=== PATIENT | female | born 1970 | race Caucasian/White ===

== ENCOUNTER 2025-09-29 16:27 | Emergency (ER) | payer OTHER ==
--- NOTE | 2025-09-29 16:36 | ERPHSYRPT ---
- History of Present Illness Time Seen by Provider: 09/29/25 16:36 Source: patient Exam Limitations: no limitations Physician History: This is an obese 55-year-old white female patient arrives with private vehicle and is a patient Dr. Lamar with a complaint of severe right lower quadrant abdominal pain and right hip pain. She also has seemingly unrelated other complaints including dizziness headache "seeing spots". She did not suffer any acute fall or head injury. She also complains of left thigh pain. The patient never fell or injured herself. Patient has had a right hip replacement and left knee replacement in the past. She does not have chest pain. She does not have shortness of breath. Yesterday, she had several episodes of diarrhea but none today. Patient has a history of arthritis, hypertension, peripheral neuropathy and "gallbladder stents". She still has her appendix in place. She states she also still has her gallbladder in place. She states she has never had an episode like this before Timing/Duration: yesterday, worse Severity: moderate Modifying Factors: Improves With: movement Associated Symptoms: abdominal pain (Right lower quadrant), No nausea, No vomiting, No shortness of breath, No chest pain, No fever Allergies/Adverse Reactions: ibuprofen Allergy (Verified 09/29/25 16:36) Penicillins Allergy (Verified 09/29/25 16:36) Home Medications: Benazepril/Hydrochlorothiazide [Benazepril-Hctz 10-12.5 mg Tab] 0.5 tab PO DAILY 09/29/25 [History] Gabapentin [Neurontin] 300 mg PO TID 09/29/25 [History] Meloxicam 15 mg [Meloxicam 15 MG] 15 mg PO DAILY 09/29/25 [History] Travel Risk - International Travel Have you traveled outside of the country in past 3 weeks: No - Emerging Infectious Disease Are you exhibiting symptoms associated with any current EIDs: Yes Symptoms: Abdominal Pain - Review of Systems Constitutional: No Symptoms Eyes: No Symptoms Ears, Nose, & Throat: No Symptoms Respiratory: No Symptoms Cardiac: No Symptoms Abdominal/Gastrointestinal: Abdominal Pain (Right lower quadrant) Genitourinary Symptoms: No Symptoms Musculoskeletal: No Symptoms Skin: No Symptoms Neurological: Dizziness, Headache Psychological: No Symptoms Endocrine: No Symptoms Hematologic/Lymphatic: No Symptoms Immunological/Allergic: No Symptoms All Other Systems: Reviewed and Negative - Past Medical History Pertinent Past Medical History: Yes - Nursing Vital Signs Nursing Vital Signs: Initial Vital Signs Blood Pressure 111/63 09/29/25 16:25 O2 Sat by Pulse Oximetry 99 09/29/25 16:25 Pain Scale Pain Intensity 7 - Physical Exam General Appearance: mild distress, alert, anxiety Eye Exam: PERRL/EOMI, eyes nml inspection Ears, Nose, Throat Exam: normal ENT inspection, moist mucous membranes Neck Exam: normal inspection, non-tender, supple, full range of motion Respiratory Exam: normal breath sounds, lungs clear, airway intact, No chest tenderness, No respiratory distress Cardiovascular Exam: regular rate/rhythm, normal heart sounds, normal peripheral pulses Gastrointestinal/Abdomen Exam: soft, normal bowel sounds, tenderness (Right lower quadrant to palpation), guarding (Right lower quadrant to palpation), rebound (Right lower quadrant to palpation) Pelvic Exam: not done Rectal Exam: not done Back Exam: normal inspection, normal range of motion, No CVA tenderness, No vertebral tenderness Extremity Exam: normal inspection, normal range of motion, pelvis stable Neurologic Exam: alert, oriented x 3, cooperative, developmental therapist II-XII nml as tested, nml cerebellar function, nml station & gait, sensation nml Skin Exam: normal color, warm, dry Lymphatic Exam: No adenopathy SpO2 Interpretation: normal O2 Delivery: Room Air - Course Nursing assessment & vital signs reviewed: Yes EKG Interpreted by Me: RATE (64), Sinus Rhythm, NORMAL AXIS, NORMAL QRS, Other (QTc is 390. No acute ischemia. There is also a short NH interval.) Ordered Tests: Active Orders 24 hr Category Date Time Status Remote Control Assembler STAT Care 09/29/25 17:02 Active EKG-ER Only STAT Care 09/29/25 17:02 Completed IV Insertion STAT Care 09/29/25 17:02 Active Pulse Oximetry (ED) STAT Care 09/29/25 17:02 Active ABDOMEN AND PELVIS W/0 CONTRAS [CT] Stat Exams 09/29/25 17:03 Taken HEAD WITHOUT CONTRAST [CT] Stat Exams 09/29/25 17:03 Taken AMYLASE Stat Lab 09/29/25 17:02 Completed CBC W DIFF Stat Lab 09/29/25 17:02 Completed CMP Stat Lab 09/29/25 17:02 Completed CULTURE,URINE Stat Lab 09/29/25 18:07 Received LIPASE Stat Lab 09/29/25 17:02 Completed Lactic Acid Stat Lab 09/29/25 17:22 Completed TROPONIN Q4H Lab 09/29/25 17:15 Completed TROPONIN Q4H Lab 09/29/25 21:15 Ordered TROPONIN Q4H Lab 09/30/25 01:15 Ordered UA W/RFX UR CULTURE Stat Lab 09/29/25 18:07 Completed Medication Summary Generic Name Dose Route Start Last Admin Trade Name Quang PRN Reason Stop Dose Admin Levofloxacin/Dextrose 500 mg in 100 mls @ 100 mls/hr 09/29/25 18:45 09/29/25 18:49 Levofloxacin 500mg/100ml D5w IV 09/29/25 19:44 100 ml/hr STAT STA 100 mls/hr Administration Discontinued Medications Generic Name Dose Route Start Last Admin Trade Name Quang PRN Reason Stop Dose Admin Hydromorphone HCl 1 mg 09/29/25 17:02 09/29/25 17:24 Hydromorphone 1 Mg/1ml Inj IV 09/29/25 17:03 1 mg STAT ONE Administration Hydromorphone HCl Confirm 09/29/25 17:23 Hydromorphone 1 Mg/1ml Inj Administered 09/29/25 17:24 Dose 1 mg .ROUTE .STK-MED ONE Hydromorphone HCl 0.5 mg 09/29/25 19:15 09/29/25 19:21 Hydromorphone 1 Mg/1ml Inj IV 09/29/25 19:16 0.5 mg STAT ONE Administration Hydromorphone HCl Confirm 09/29/25 19:19 Hydromorphone 1 Mg/1ml Inj Administered 09/29/25 19:20 Dose 1 mg .ROUTE .STK-MED ONE Sodium Chloride 1,000 mls @ 999 mls/hr 09/29/25 17:02 09/29/25 18:26 Sodium Chloride 0.9% 1000 Ml IV 09/29/25 18:02 Infused .Q1H1M STA Infusion Sodium Chloride Confirm 09/29/25 17:23 Sodium Chloride 0.9% 1000 Ml Administered 09/29/25 17:24 Dose 1,000 mls @ ud .ROUTE .STK-MED ONE Levofloxacin/Dextrose Confirm 09/29/25 18:48 Levofloxacin 500mg/100ml D5w Administered 09/29/25 18:49 Dose 500 mg in 100 mls @ ud IV .STK-MED ONE Ondansetron HCl 4 mg 09/29/25 17:02 09/29/25 17:24 Ondansetron Hcl 4 Mg/2 Ml Vial IV 09/29/25 17:03 4 mg STAT ONE Administration Ondansetron HCl Confirm 09/29/25 17:23 Ondansetron Hcl 4 Mg/2 Ml Vial Administered 09/29/25 17:24 Dose 4 mg .ROUTE .STK-MED ONE Lab/Rad Data: Laboratory Result Diagrams 09/29/25 17:02 09/29/25 17:02 Laboratory Results 09/29/25 09/29/25 09/29/25 Range/Units 18:07 17:22 17:15 WBC (3.98-10.04) x10^3/uL RBC (3.93-5.22) x10^6/uL Hgb (11.2-15.7) g/dL Hct (34.1-44.9) % MCV (79.4-94.8) fL MCH (25.6-32.2) pg MCHC (32.2-35.5) g/dL RDW (11.7-14.4) % Plt Count (182-369) x10^3/uL MPV (9.4-12.3) fL Gran % (34.0-71.1) % Immature Gran % (Auto) (0.001-0.429) % Nucleat RBC Rel Count (0.00-0.2) % Eos # (Auto) (0.04-0.36) x10^3/uL Immature Gran # (Auto) (0.001-0.031) x10^3u/L Absolute Lymphs (auto) (1.18-3.74) x10^3/uL Absolute Monos (auto) (0.24-0.86) x10^3/uL Absolute Nucleated RBC (0.00-0.012) x10^3u/L Lymphocytes % (19.3-51.7) % Monocytes % (4.7-12.5) % Eosinophils % (0.7-5.8) % Basophils % (0.1-1.2) % Absolute Granulocytes (1.56-6.13) x10^3/uL Basophils # (0.01-0.08) x10^3/uL Sodium (135-145) mmol/L Potassium (3.5-5.1) mmol/L Chloride (98-107) mmol/L Carbon Dioxide (22-30) mmol/L Anion Gap (5-15) MEQ/L BUN (7-17) mg/dL Creatinine (0.52-1.04) mg/dL Estimated GFR ML/MIN Glucose (74-106) mg/dL Lactic Acid 1.4 (0.4-2.0) Calcium (8.4-10.2) mg/dL Total Bilirubin (0.2-1.3) mg/dL AST (14-36) U/L ALT (0-35) U/L Alkaline Phosphatase (38-126) U/L Troponin I < 0.012 (0.000-0.033) ng/mL Serum Total Protein (6.3-8.2) g/dL Albumin (3.5-5.0) g/dL Amylase (30-110) U/L Lipase (23-300) U/L Urine Color Dark Yellow A (Yellow) Urine Appearance Cloudy A (Clear) Urine pH 6.0 (4.6-8.0) Ur Specific [place] 1.025 (1.005-1.030) Urine Protein Trace A (Negative) Urine Glucose (UA) Negative (Negative) mg/dL Urine Ketones Trace A (Negative) Urine Blood Negative (Negative) Urine Nitrite Negative (Negative) Urine Bilirubin Negative (Negative) Urine Urobilinogen 1.0 A (0.2) mg/dL Ur Leukocyte Esterase Moderate A (Negative) U Hyaline Cast (Auto) >50 A (0-2) /LPF Urine Microscopic RBC 0-2 (0-5) /HPF Urine Microscopic WBC 3-5 (0-5) /HPF Ur Epithelial Cells Moderate A (None Seen) /HPF Urine Bacteria Few A (None Seen) /HPF Urine Culture Reflexed YES (NO) 09/29/25 09/29/25 Range/Units 17:02 17:02 WBC 12.2 H (3.98-10.04) x10^3/uL RBC 3.93 (3.93-5.22) x10^6/uL Hgb 11.4 (11.2-15.7) g/dL Hct 34.6 (34.1-44.9) % MCV 88.0 (79.4-94.8) fL MCH 29.0 (25.6-32.2) pg MCHC 32.9 (32.2-35.5) g/dL RDW 15.6 H (11.7-14.4) % Plt Count 385 H (182-369) x10^3/uL MPV 9.4 (9.4-12.3) fL Gran % 69.0 (34.0-71.1) % Immature Gran % (Auto) 0.7 H (0.001-0.429) % Nucleat RBC Rel Count 0.0 (0.00-0.2) % Eos # (Auto) 0.41 H (0.04-0.36) x10^3/uL Immature Gran # (Auto) 0.08 H (0.001-0.031) x10^3u/L Absolute Lymphs (auto) 2.48 (1.18-3.74) x10^3/uL Absolute Monos (auto) 0.77 (0.24-0.86) x10^3/uL Absolute Nucleated RBC 0.00 (0.00-0.012) x10^3u/L Lymphocytes % 20.3 (19.3-51.7) % Monocytes % 6.3 (4.7-12.5) % Eosinophils % 3.4 (0.7-5.8) % Basophils % 0.3 (0.1-1.2) % Absolute Granulocytes 8.42 H (1.56-6.13) x10^3/uL Basophils # 0.04 (0.01-0.08) x10^3/uL Sodium 135 (135-145) mmol/L Potassium 4.3 (3.5-5.1) mmol/L Chloride 103 (98-107) mmol/L Carbon Dioxide 22 (22-30) mmol/L Anion Gap 15.2 H (5-15) MEQ/L BUN 27 H (7-17) mg/dL Creatinine 1.52 H (0.52-1.04) mg/dL Estimated GFR 40.5 ML/MIN Glucose 99 (74-106) mg/dL Lactic Acid (0.4-2.0) Calcium 9.8 (8.4-10.2) mg/dL Total Bilirubin 0.50 (0.2-1.3) mg/dL AST 22 (14-36) U/L ALT 14 (0-35) U/L Alkaline Phosphatase 110 (38-126) U/L Troponin I (0.000-0.033) ng/mL Serum Total Protein 7.4 (6.3-8.2) g/dL Albumin 4.3 (3.5-5.0) g/dL Amylase 56 (30-110) U/L Lipase 111 (23-300) U/L Urine Color (Yellow) Urine Appearance (Clear) Urine pH (4.6-8.0) Ur Specific [place] (1.005-1.030) Urine Protein (Negative) Urine Glucose (UA) (Negative) mg/dL Urine Ketones (Negative) Urine Blood (Negative) Urine Nitrite (Negative) Urine Bilirubin (Negative) Urine Urobilinogen (0.2) mg/dL Ur Leukocyte Esterase (Negative) U Hyaline Cast (Auto) (0-2) /LPF Urine Microscopic RBC (0-5) /HPF Urine Microscopic WBC (0-5) /HPF Ur Epithelial Cells (None Seen) /HPF Urine Bacteria (None Seen) /HPF Urine Culture Reflexed (NO) - Progress Progress: improved, pain not gone completely, re-examined Progress Note: 09/29/25 18:28 My medical decision making and the assignment of moderate complexity of this patient's medical issue today is based on review of the patient's past medical history, reviewed the patient's medication list, reviewed the patient drug allergy list, history of present illness and physical findings on examination. The workup in this patient includes placement of intravenous line, infusion of normal saline solution, infusion of Dilaudid, infusion of Zofran intravenously, CBC, CMP, amylase, lipase, urinalysis, CT scan of the head without contrast, twelve-lead EKG, troponin level, viral swabs CT scan abdomen pelvis without contrast. Differential diagnosis includes but is not limited to right hip pain, acute appendicitis, diverticulitis, colitis, bowel obstruction, pyelonephritis, ureterolithiasis, acute intracranial abnormality, urinary tract infection, myocardial infarction, arrhythmia 09/29/25 19:41 I interpreted the patient's laboratory data result. Based on laboratory data result, the patient has a significant urinary tract infection. There are no other acute, emergent medical findings based on the laboratory data results. The following CT scans were performed without contrast and were interpreted by the radiologist. The impressions are CT scan of the head shows mild right maxillary sinus disease and left maxillary sinus cyst/polyp measuring 1.[address] scan of the head CT scan of the abdomen pelvis without contrast shows mild diffuse fecal stasis with biliary stent in place. There is mild multilevel degenerative spondylosis. There is intact right hip arthroplasty and old healing left femur fracture. Counseled pt/family regarding: lab results, diagnosis, need for follow-up, rad results Medical Desision Making - Diagnostic Testing Diagnostic test were ordered, analyzed, and reviewed by me: Yes Radiological Interpretation: Reviewed by me, Teleradiologist Report - Risk of complications Low Risk: Low risk of morbidity from additional dx testing or treatment - Departure Departure Disposition: Home Clinical Impression: UTI (urinary tract infection), Sinusitis Condition: Stable Critical Care Time: No Referrals: GARY LUIS [ACTIVE STAFF, [facility]] - Follow up/PCP as directed Additional Instructions: Drink plenty of fluids. Take your antibiotics as prescribed. Call your primary prescribing provider tomorrow, 09/30/2025, to make arrangements for follow-up appointment for further evaluation management. Prescriptions: Cefdinir 300 mg PO BID #14 cap
[2025-09-29 16:45] VITALS: TEMP 97.6
[2025-09-29] MEDS ORDERED: Zofran 4 MG/2 ML VIAL ONE (17:23)
[2025-09-29] MEDS ORDERED: Hydromorphone 1 mg/ml Injection ONE ×2 (17:23→19:19)
[2025-09-29 17:24] LABS: BASOPHIL % 0.3 % (0.1-1.2); Basophil (Absolute #) 0.04 x10^3/uL (0.01-0.08); Eosinophil (Absolute #) 0.41 x10^3/uL (0.04-0.36); Hematocrit 34.6 % (34.1-44.9); Hemoglobin 11.4 g/dL (11.2-15.7); IMMATURE GRAN # 0.08 x10^3u/L (0.001-0.031); IMMATURE GRAN % 0.7 % (0.001-0.429); Lymphocyte (Absolute #) 2.48 x10^3/uL (1.18-3.74); Mean Corpuscular Hemoglobin 29.0 pg (25.6-32.2); Mean Corpuscular Hgb Concent. 32.9 g/dL (32.2-35.5); Monocyte (Absolute #) 0.77 x10^3/uL (0.24-0.86); NUCLEATED RBC # 0.00 x10^3u/L (0.00-0.012); NUCLEATED RBC % 0.0 % (0.00-0.2); Platelet Count 385 x10^3/uL (182-369); Red Blood Count 3.93 x10^6/uL (3.93-5.22); White Blood Count 12.2 x10^3/uL (3.98-10.04)
[2025-09-29] MEDS: Hydromorphone 1 mg/ml Injection IV ONE ×2 (17:24→19:21)
[2025-09-29] MEDS: Zofran 4 MG/2 ML VIAL IV ONE (17:24)
[2025-09-29 17:51] LABS: Calcium 9.8 mg/dL (8.4-10.2); Carbon Dioxide 22.0 mmol/L (22-30); Creatinine 1 1.52 mg/dL (0.52-1.04); EST GLOMERULAR FILTRATION RATE 40.5 ML/MIN; Glucose 99.0 mg/dL (74-106); Potassium 4.3 mmol/L (3.5-5.1); SGOT/AST 22.0 U/L (14-36); SGPT/ALT 14.0 U/L (0-35); Total Protein 7.4 g/dL (6.3-8.2)
[2025-09-29 18:17] LABS: Glucose, Urine Negative (Negative); Protein,Urine Dip Trace (Negative); RBC 0-2 /HPF (0-5)
[2025-09-29] MEDS ORDERED: Levofloxacin 500MG/100ML D5W 500 MG/100 ML BAG IV ONE (18:48)
[2025-09-29] MEDS: Levofloxacin 500MG/100ML D5W 500 MG/100 ML BAG IV STA (18:49)
[2025-09-29 19:50] VITALS: BP 135/82; PULSE 66; RESP 24; O2SAT 96
--- NOTE | 2025-09-30 08:43 | XRAY ---
Indication: Headache. Dizziness. Visual changes. Multiple contiguous axial images obtained through the head without contrast. Comparison: None Normal appearing brain parenchyma, ventricles, and bony calvarium for patient's age. Mild mucoperiosteal thickening right maxillary sinus with fluid leveling and 1.6 cm left maxillary sinus polyp/retention cyst. Mastoid air cells are clear. Impression: Paranasal sinus disease as detailed. Remaining CT head without contrast is normal.
--- NOTE | 2025-09-30 08:47 | XRAY ---
Indication: Right lower quadrant pain. Multiple contiguous axial images obtained through the abdomen and pelvis without contrast. Comparison: None Lung bases clear. Heart not enlarged. Right hip arthroplasty and incompletely visualized left femur intramedullary gene produces beam artifact. Stomach distended with food/fluid. Noncontrasted stomach and bowel loops appear nonobstructed with normal appendix. There is mild diffuse scattered colonic fecal debris. Previous cholecystectomy with common bile duct biliary stent in Situ and minimal pneumobilia. No free fluid/air. Remaining liver, pancreas, spleen, adrenal glands, kidneys, ureters, bladder, and uterus are unremarkable for noncontrast exam. Minimal aortic calcifications without AAA. Osseous structures intact with osteopenia, mild multilevel degenerative spondylosis, bilateral L5 spondylolysis without listhesis, right hip arthroplasty, and incompletely visualized left femur intramedullary gene/screws. Impression: 1. Beam artifact from orthopedic hardware. 2. Mild diffuse colonic fecal stasis. 3. Chronic findings including biliary stent in Situ with minimal pneumobilia, osteopenia, multilevel degenerative spondylosis, and L5 spondylolysis without listhesis.
== END 2025-09-29 20:05 | disposition home or self-care (01) ==
LOC: ED 16:27
DX: N39.0 Urinary tract infection, site not specified (principal); J32.0 Chronic maxillary sinusitis; R10.31 Right lower quadrant pain; M25.551 Pain in right hip; R42 Dizziness and giddiness; R51.9 Headache, unspecified; M79.652 Pain in left thigh; I10 Essential (primary) hypertension; Z79.899 Other long term (current) drug therapy